=== PATIENT | male | born 1955 | race Caucasian/White ===

== ENCOUNTER → 2017-06-27 | Outpatient (CLI) | payer BC | END | disposition home or self-care (01) | LOC: GMAB 11:21 | PROVIDERS: ATTEND Family Medicine | DX: M10.9 Gout, unspecified (principal) ==

== ENCOUNTER → 2017-08-27 | Outpatient (CLI) | payer BC | END | disposition home or self-care (01) | LOC: GMAB 08:46 | PROVIDERS: ATTEND Family Medicine | DX: Z00.01 Encounter for general adult medical examination with abnormal findings (principal) ==

== ENCOUNTER 2018-06-10 23:37 | Emergency (ER) | payer BC ==
[2018-06-10] MEDS ORDERED: ASPIRIN TABLET 325 MG TAB PO ONE (23:51)
[2018-06-10] MEDS ORDERED: ALUM & MAG HYDROX-SIMETHICONE 30 ML, LIDOCAINE VISCOUS 2% 15 ML PO ONE ×2 (23:51)
[2018-06-10] MEDS ORDERED: ALUM & MAG HYDROX-SIMETHICONE 30 ML UD ONE (23:58)
[2018-06-10] MEDS ORDERED: LIDOCAINE HCL 2% (MOUTH-THROAT) 15 ML UD ONE (23:58)
--- NOTE | 2018-06-11 00:28 | RAD ---
EXAM DESCRIPTION: Chest,2 Views CLINICAL HISTORY: 63 years Male, chest pain COMPARISON: None. FINDINGS: No consolidation. No pneumothorax. No significant pleural effusion. Cardiomediastinal silhouette is unremarkable. Chronic appearing right rib fractures noted involving right ribs four through seven. IMPRESSION: No acute findings. Electronically signed by: Kavon Kaiser MD 06/11/2018 12:27 AM CDT
[2018-06-11] MEDS ORDERED: ALUM & MAG HYDROX-SIMETHICONE 30 ML, LIDOCAINE VISCOUS 2% 15 ML PO ONE ×2 (01:54)
[2018-06-11] MEDS ORDERED: ALUM & MAG HYDROX-SIMETHICONE 30 ML UD ONE (01:54)
[2018-06-11] MEDS ORDERED: LIDOCAINE HCL 2% (MOUTH-THROAT) 15 ML UD ONE (01:54)
[2018-06-11] MEDS ORDERED: PANTOPRAZOLE SODIUM IV 40 MG VIAL IV ONE (02:29)
[2018-06-11] MEDS ORDERED: SUCRALFATE 1 GM/10 ML 1 GM UD PO ONE (02:29)
[2018-06-11] MEDS ORDERED: NITROGLYCERIN 0.4 MG 25 EA TAB SL ONE (02:30)
[2018-06-11] MEDS ORDERED: SODIUM CHLORIDE 0.9% 1000ML 1,000 ML IVS ONE (02:58)
[2018-06-11] MEDS ORDERED: CLOPIDOGREL 75 MG TAB PO ONE (03:07)
[2018-06-11] MEDS ORDERED: HEPARIN SODIUM (PORCINE) 5,000 U/ML VIAL IV ONE (03:07)
--- NOTE | 2018-06-11 03:18 | ED.PDOC ---
History of Present Illness - General Chief Complaint: Chest Pain/NH Stated Complaint: chest pain Time Seen by Provider: 06/10/18 23:41 Source: patient Exam Limitations: no limitations - History of Present Illness Initial Comments: the patient is a 63-year-old male presenting to the emergency room with his family secondary to chest pain that started approximately an hour and a half prior to arrival. The patient was approximately 3 hours after supper and was just sitting there with chest pain started. Chest pain is substernal and somewhat burning and squeezing. he did note a mild radiation to the right side of his jaw. He does have a difficult time describing it. He did seem to get about 70% relief with GI cocktail first time but less relief the second time. The blood pressure dropped from the systolic end approximately 75 points with one dose of nitroglycerin. He did pass out with this. No injury occurred. he did receive aspirin initially. chest pain did seem to be a little worse with taking a deep breath. It was not worse with palpation or movement otherwise. It did seem to be a little worse with lying back flat. No real shortness of breath. Timing/Duration: 1-3 hours Severity: moderate Improving Factors: nothing Worsening Factors: movement Associated Symptoms: chest pain Allergies/Adverse Reactions: Allergies Penicillins Allergy (Verified 06/11/18 00:05) Home Medications: Ambulatory Orders Amlodipine Besylate [Amlodipine Besylate] 10 mg PO DAILY 06/11/18 Telmisartan [Telmisartan] 80 mg PO DAILY 06/11/18 Review of Systems - Review of Systems Constitutional: States: no symptoms reported EENTM: States: no symptoms reported Respiratory: States: no symptoms reported Cardiology: States: chest pain. Denies: palpitations Gastrointestinal/Abdominal: States: no symptoms reported Genitourinary: States: no symptoms reported Musculoskeletal: States: no symptoms reported Skin: States: no symptoms reported Neurological: States: no symptoms reported Endocrine: States: no symptoms reported All other Systems: No Change from Baseline Past Medical History (General) - Patient Medical History Hx Seizures: No Hx Stroke: No Hx Dementia: No Hx Asthma: No Hx of COPD: No Hx Cardiac Disorders: No Hx Congestive Heart Failure: No Hx Pacemaker: No Hx Hypertension: Yes Hx Thyroid Disease: No Hx Diabetes: No Hx Gastroesophageal Reflux: No Hx Renal Disease: No Hx Cancer: No Hx of HIV: No Hx Hepatitis C: No Hx MRSA: Yes - Armpit 2006 MRSA Source:: Wound Surgical History: no surgical history - Vaccination History Hx Tetanus, Diphtheria Vaccination: No Hx Influenza Vaccination: No - Social History Hx Alcohol Use: Yes - social Family Medical History - Family History Mother Living Status: Hx Cardiac Disease: Yes Physical Exam - Physical Exam General Appearance: Alert, Anxious Eye Exam: bilateral normal Ears, Nose, Throat: hearing grossly normal, normal ENT inspection, normal pharynx Neck: non-tender, full range of motion, supple Respiratory: chest non-tender, lungs clear, normal breath sounds, no respiratory distress, no accessory muscle use Cardiovascular/Chest: normal peripheral pulses, regular rate, rhythm, no edema, other - he does have a high pitched murmur that is soft to the left of the lower sternal border. 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, no motor/sensory deficits, alert, normal mood/affect, oriented x 3 Skin Exam: normal color Comments: Vital Signs - 24 hr 06/10/18 06/10/18 06/11/18 23:40 23:44 01:00 Temperature 98.1 F Pulse Rate [ 94 H 94 H 82 monitor] Respiratory 18 16 Rate Blood Pressure 146/76 138/75 [Left Arm] O2 Sat by Pulse 96 Oximetry 06/11/18 06/11/18 06/11/18 01:55 02:18 03:00 Temperature Pulse Rate [ 90 88 88 monitor] Respiratory 20 20 16 Rate Blood Pressure 156/85 144/74 114/62 [Left Arm] O2 Sat by Pulse 97 97 99 Oximetry Progress - Progress Progress: 06/11/18 03:24 the patient's a 63-year-old male previously in generally good health presenting with concerning chest pain. The nature of the chest pain as well as the very significant drop in blood pressure with nitroglycerin is concerning for a flow restricting lesion giving unstable angina. The 2 EKGs are not showing any definitive pathology at this point. Chest x-ray is reassuring. Initial set of cardiac enzymes showed no elevation of CK-MB or troponin though the CK was mildly elevated. He has a 2% increase over the upper limits of normal of the d-dimer. He does not really have any outstanding risk factors for a DVT or PE. He had no hypoxia upon arrival. No leg symptoms. It is certainly possible that the chest pain may be coming from pleurisy or esophageal disease or other sources however the presentation is very concerning for unstable angina. The patient has received a dose of IV heparin as well as 300 mg oral Plavix and a full dose aspirin. He is currently receiving oxygen. He has not received a dose of metoprolol for fear of knocking his blood pressure down further. He did receive a fluid bolus due to the hypotension from the nitroglycerin. He has not yet received any morphine. Pain is a 2 out of 10 at this current time. Transferring for higher level of care and specialty evaluation. Vital signs are stable at this time. - Results/Orders Results/Orders: initial EKG shows normal sinus rhythm at 89 bpm. Normal axis. Normal R-wave progression. No acute ST segment changes concerning for ischemia. Normal QT interval. Repeat EKG 3 hours later shows a normal sinus rhythm. No acute ST segment changes concerning for immediate ischemia. Normal R-wave progression. Normal axis. Chest x-ray shows no widening of the mediastinum or evidence of any fluid overload. No pneumothorax or infiltrate. No obvious mass. telemetry shows normal sinus rhythm returned to sinus bradycardia with the nitroglycerin. Laboratory Results - last 24 hr 06/10/18 06/10/18 06/10/18 23:50 23:50 23:50 WBC 12.4 H RBC 5.16 Hgb 16.4 Hct 48.4 MCV 93.8 MCH 31.9 H MCHC 34.0 RDW 14.1 Plt Count 233 MPV 7.9 Absolute Neuts (auto) 7.90 H Absolute Lymphs (auto) 2.90 Absolute Monos (auto) 0.90 H Absolute Eos (auto) 0.50 H Absolute Basos (auto) 0.10 Neutrophils % 63.8 Lymphocytes % 23.9 Monocytes % 7.4 Eosinophils % 4.2 Basophils % 0.7 PT 9.5 INR 0.95 PTT (SP) 23.4 D-Dimer, Quantitative 0.50 H Sodium 139 Potassium 3.4 L Chloride 103 Carbon Dioxide 27 Anion Gap 12.4 BUN 16 Creatinine 1.25 BUN/Creatinine Ratio 12.8 Random Glucose 143 H Serum Osmolality 281.2 Lactic Acid Calcium 9.4 Magnesium 2.1 Total Bilirubin 0.5 AST 42 ALT 67 H Alkaline Phosphatase 67 Creatine Kinase 365 H* CK-MB (CK-2) 3.1 CK-MB (CK-2) % Not Reportable Troponin I < 0.02 B-Natriuretic Peptide 8.1 Serum Total Protein 8.0 Albumin 4.4 Globulin 3.6 H Albumin/Globulin Ratio 1.2 Amylase 67 Lipase 34 06/10/18 23:50 WBC RBC Hgb Hct MCV MCH MCHC RDW Plt Count MPV Absolute Neuts (auto) Absolute Lymphs (auto) Absolute Monos (auto) Absolute Eos (auto) Absolute Basos (auto) Neutrophils % Lymphocytes % Monocytes % Eosinophils % Basophils % PT INR PTT (SP) D-Dimer, Quantitative Sodium Potassium Chloride Carbon Dioxide Anion Gap BUN Creatinine BUN/Creatinine Ratio Random Glucose Serum Osmolality Lactic Acid 1.0 Calcium Magnesium Total Bilirubin AST ALT Alkaline Phosphatase Creatine Kinase CK-MB (CK-2) CK-MB (CK-2) % Troponin I B-Natriuretic Peptide Serum Total Protein Albumin Globulin Albumin/Globulin Ratio Amylase Lipase Departure - Departure Clinical Impression: Chest pain Qualifiers: Chest pain type: chest pain due to myocardial ischemia Ischemic chest pain type : unstable angina pectoris Qualified Code(s): I20.0 - Unstable angina Disposition: Transfer to Hospital Departure Forms: ED Discharge - Pt. Copy, Patient Portal Self Enrollment Referrals: Abrahan Duke MD [Primary Care Provider] - 1-2 Weeks Home Medications: Ambulatory Orders Amlodipine Besylate [Amlodipine Besylate] 10 mg PO DAILY 06/11/18 Telmisartan [Telmisartan] 80 mg PO DAILY 06/11/18 Transfer to Outside Facility - Transfer Information Accepting Provider:: dr peter Accepting Facility: [facility] Reason for Transfer: required specialist not available
[2018-06-11 03:30] VITALS: TEMP 96.8
[2018-06-11 03:41] VITALS: BP 124/73; O2SAT 94
== END 2018-06-11 03:50 | disposition short-term general hospital (02) ==
LOC: ER 23:37
DX: I20.0 Unstable angina (principal); I10 Essential (primary) hypertension; Z86.14 Personal history of Methicillin resistant Staphylococcus aureus infection; Z88.0 Allergy status to penicillin
CPT/HCPCS: 36415; 71046; 80053; 82150; 82550; 82553; 83605; 83690; 83735; 83880; 84484; 85025; 85379; 85610; 85730; 93005; J1644; J7030

== ENCOUNTER → 2018-06-17 | Outpatient (CLI) | payer BC | LOC: GMAE 11:26 | PROVIDERS: ATTEND Family Medicine | DX: M79.1 Myalgia (principal); R06.02 Shortness of breath ==

== ENCOUNTER → 2019-11-28 | Outpatient (CLI) | payer BC ==
--- NOTE | 2019-11-29 11:18 | MRI ---
EXAM DESCRIPTION: Lumbar Spine w/o Contrast : Magnetic Resonance Imaging. CLINICAL HISTORY: RADICULOPATHY COMPARISON: LUMBAR TECHNIQUE: Multiplanar, multiple standard sequences, non contrast MRI, lumbar spine. FINDINGS: L5-S1: The disc is well visualized on axial T2 series 501, image 3. Moderate loss of disc space and advanced desiccation. Endplate reactive changes bilaterally and erosions centrally. Left posterior disc bulge with hyperintense T2-weighted annular fissure abutting the descending left S1 nerve. Degenerative hypertrophy of the posterior ligaments: Facet joints and posterior flavum ligaments. Mild canal narrowing. Moderate to severe narrowing of the left foramen and mild right neural foraminal stenosis. Rudimentary S1-S2 disc. Conus terminates at T12-L1, but the filum terminale is thickened around the nerve roots at L2-3 and L3-4. The nerve roots are disorganized in their course from L3-4 to the L5-S1 disc space, but normal nerve root exits through the foramina bilaterally. Questionable mass at the L3-L4 level. L4-L5: Disc desiccation with right side mild endplate reactive changes and disc space loss. Posterior midline 5 mm disc herniation and 6 mm extrusion in the midline into the left of midline impressing on the thecal sac and effacing the left subarticular recess, likely impressing on the descending left L5 nerve. Bilateral shortened pedicles. Bilateral degenerative hypertrophy of the posterior elements with 9 mm mild central canal stenosis. Bilateral moderate foraminal narrowing. L3-L4: Disc desiccation with disc space bulge. Posterior left paracentral 6 mm protrusion impressing on the thecal sac and extruding 5 mm below the disc space effacing the bilateral subarticular recesses with likely compromise of the descending L4 nerves. Bilateral shortened pedicles. AP canal diameter 8 to 9 mm. Bilateral hypertrophic degeneration changes of the posterior elements. Moderate to severe right foraminal narrowing and moderate left foraminal narrowing. L2-L3: Minimal disc desiccation with disc space preserved. Bilateral degenerative hypertrophy of the posterior elements. Bilateral pedicle shortening. AP canal diameter 11 mm. Bilateral mild to moderate foraminal narrowing, more on the right. L1-L2: Disc desiccation and minimal disc space loss. Anterior moderate endplate reactive changes inferior L1 endplate with disc bulge and endplate ridging. Small Schmorl's node. Trace retrolisthesis 2 mm. Tiny posterior bulge. Bilateral shortened pedicles. Mild degenerative hypertrophy of the posterior elements. Moderate canal narrowing. Bilateral mild foraminal narrowing. T12-L1: Normal signal in the disc with disc space preserved. Conus terminates at this level. Posterior elements are unremarkable. Canal and foramina are patent. No scoliosis. Paravertebral soft tissues unremarkable. Distal cord normal signal and caliber. Normal marrow signal in the remaining vertebral bodies and the posterior elements. Vertebral bodies are not compressed at any level. IMPRESSION: 1. Disorganization of the filum terminale in the course of the nerve roots from L3-L4 to the L5-S1 level. Normal exiting of the nerve roots in the foramina at these levels. Thickening of the filum terminale versus intradural mass at the L3-L4 level. Possible sequela of previous arachnoiditis or other inflammatory process in the canal. Recommend follow-up study with gadolinium IV contrast. 2. Bilateral pedicle shortening at multiple levels and multiple levels of degenerative hypertrophy of the posterior flavum ligaments and facet joints. Multiple levels of disc bulging or herniation. Details in the findings. 3. Mild to moderate spondylosis at L1 5 S1. No posterior disc bulge with annular fissure abutting the descending left S1 nerve. Severe left foraminal narrowing and mild right neural foraminal stenosis. Correlate for left S1 and right L5 radiculopathy. 4. Posterior midline L4-L5 disc herniation and inferior extrusion with mild canal stenosis. Effacing the left subarticular recess and probable compromise left L5 nerve. Correlate for radiculopathy. Moderate foraminal narrowing. 5. Posterior left paracentral protrusion of the L3-L4 disc with inferior extrusion bilaterally effacing the bilateral subarticular recesses and likely compromise bilateral L4 nerves. Correlate for radiculopathy. Moderate to severe right foraminal narrowing. Mild to moderate central canal stenosis multifactorial. Electronically signed by: Adryan Spring MD 11/29/2019 11:16 AM [employer]ERMAN
== END ==
LOC: MRI 08:39
PROVIDERS: ATTEND Family Medicine
DX: M54.16 Radiculopathy, lumbar region (principal); G95.9 Disease of spinal cord, unspecified; M51.86 Other intervertebral disc disorders, lumbar region; M24.28 Disorder of ligament, vertebrae; M51.26 Other intervertebral disc displacement, lumbar region; M47.897 Other spondylosis, lumbosacral region; M48.061 Spinal stenosis, lumbar region without neurogenic claudication

== ENCOUNTER → 2019-12-03 | Outpatient (CLI) | payer BC ==
--- NOTE | 2019-12-04 09:45 | MRI ---
EXAM DESCRIPTION: Lumbar Spine w/Contrast: Magnetic Resonance Imaging. CLINICAL HISTORY: radiculopathy. Abnormal nerve roots in the canal. Possible mass. COMPARISON: Noncontrast MRI scan lumbar spine 28 November 2019. TECHNIQUE: Multiplanar, MRI, multiple standard sequences, with 1 mL per 5 kg body weight Gadolinium IV contrast, lumbar spine. No adverse reactions. FINDINGS: At the L3-L4 level, where the filum terminale was thickened with possible mass in the canal, no abnormal contrast enhancement. The protruding disc herniation at this level demonstrates variable contrast enhancement. From the L3-4 disc space to the L5-S1 disc space, where nerve roots in the thecal sac were disorganized and tortuous on the prior study, no abnormal contrast enhancement and no mass. Minimal enhancement in the posterior margin of the protruding disc herniation at L4-L5. No abnormal enhancement elsewhere in the thecal sac or spinal canal. Normal enhancement of the bilateral nerve roots in the foramina. Minimal enhancement in the acute Schmorl's node inferior anterior L1 endplate. No abnormal enhancement in the remainder of the endplates at this level disc or disc space. No abnormal paravertebral enhancement. No abnormal enhancement in the included cord and conus. IMPRESSION: 1. No mass in the conus, filum terminale, thecal sac, or nerve roots in the lumbar spine. Disorganized appearance of nerve roots from L3-L4 to L5-S1 may be congenital or secondary to prior arachnoiditis, but no acute inflammatory process and no severe canal stenosis. Normal enhancement in the included cord and conus also. 2. Enhancing disc herniations at L3-L4 and L4-L5. 3. Enhancing subacute Schmorl's node anterior inferior L1 endplate. No abnormal disc or disc space enhancement. Electronically signed by: Adryan Spring MD 12/04/2019 9:43 AM [employer]IVER
== END ==
LOC: MRI 12:52
PROVIDERS: ATTEND Family Medicine
DX: M54.16 Radiculopathy, lumbar region (principal); M51.26 Other intervertebral disc displacement, lumbar region; M51.46 Schmorl's nodes, lumbar region